=== PATIENT | male | born 1960 | race Hispanic/Latino ===

== ENCOUNTER → 2021-06-11 | Outpatient (CLI) | payer SELFPAY ==
[~2021-06-11] MED LIST: LIDOCAINE VISC 2% SOLN 15 ML UDC ONE
== END ==
LOC: WCC 13:00
PROVIDERS: ATTEND Podiatrist
DX: S81.802A Unspecified open wound, left lower leg, initial encounter (principal); I10 Essential (primary) hypertension; E78.5 Hyperlipidemia, unspecified; W45.8XXA Other foreign body or object entering through skin, initial encounter
CPT/HCPCS: 36415; 82948

== ENCOUNTER → 2021-06-25 | Outpatient (CLI) | payer SELFPAY ==
[~2021-06-25] MED LIST changes: -LIDOCAINE VISC 2% SOLN 15 ML UDC ONE; +NYSTATIN 15 GM POWDER UD BTL ONE; +TRIAMCINOLONE ACET 0.1% CREAM 15 GM TUBE ONE
== END ==
LOC: WCC 12:43
PROVIDERS: ATTEND Podiatrist
DX: S81.802A Unspecified open wound, left lower leg, initial encounter (principal); E78.5 Hyperlipidemia, unspecified; I10 Essential (primary) hypertension; W45.8XXA Other foreign body or object entering through skin, initial encounter

== ENCOUNTER → 2021-07-09 | Outpatient (CLI) | payer SELFPAY | LOC: WCC 14:17 | PROVIDERS: ATTEND Podiatrist | DX: S81.802A Unspecified open wound, left lower leg, initial encounter (principal); W45.8XXA Other foreign body or object entering through skin, initial encounter; I10 Essential (primary) hypertension; E78.5 Hyperlipidemia, unspecified ==